=== PATIENT | male | born 1970 | race African-American/Black ===

== ENCOUNTER 2024-07-25 08:19 | Emergency (ER) | payer BC ==
[~2024-07-25] VITALS: Ht 175.3 cm; Wt 74.0 kg
[2024-07-25 08:30] VITALS: O2SAT 98
[2024-07-25 12:12] LABS: BASOPHILS % 0.8 % (0.0-2.0); DIFFERENTIAL COMMENT 0; EOSINOPHILS % 2.6 % (0.0-5.0); HEMATOCRIT. 42.1 % (42.0-52.0); LYMPHOCYTES % 55.6 % (20.0-50.0); MEAN CORPUSCULAR HEMOGLOBIN 34.1 pg (28.0-32.0); MEAN CORPUSCULAR HGB CONC 33.2 g/dL (31.0-37.0); MEAN CORPUSCULAR VOLUME 102.9 fL (80.0-94.0); MEAN PLATELET VOLUME 7.7 fl (7.4-10.4); MONOCYTES % 6.1 % (2.0-8.0); NEUTROPHILS % 34.9 % (40.0-76.0); PLATELET 191 x1000/uL (130-400); RED BLOOD CELL COUNT 4.09 mill/uL (4.7-6.1); RED CELL DISTRIBUTION WIDTH 12.9 % (11.6-14.6); WHITE BLOOD COUNT 4.5 x1000/uL (4.5-11.0)
[2024-07-25 12:32] LABS: CARBON DIOXIDE 24 mEq/L (21-32); CHLORIDE 109 mEq/L (98-107); POTASSIUM 4.3 mEq/L (3.5-5.1); SODIUM 141 mEq/L (136-145)
[2024-07-25 12:33] LABS: CALCIUM 9.7 mg/dL (8.7-10.4)
[2024-07-25 12:38] LABS: GLUCOSE 92 mg/dL (70-105); UREA NITROGEN BLOOD 16 mg/dL (9-23)
[2024-07-25 13:00] LABS: ETHANOL BLOOD < 10 mg/dL (<10); TROPONIN I HIGH SENSITIVITY < 4 ng/L (3.0-53)
[2024-07-25 14:56] VITALS: BP 116/72; PULSE 72; RESP 16; TEMP 36.6; O2SAT 98
== END 2024-07-25 14:58 | disposition home or self-care (01) ==
LOC: ER 08:43
DX: R10.31 Right lower quadrant pain (principal); R51.9 Headache, unspecified; Z98.890 Other specified postprocedural states
CPT/HCPCS: 36415; 71045; 74176; 80048; 80320; 84484; 85025; 93005; 99285; G0480

== ENCOUNTER 2024-10-20 22:57 | Emergency (ER) | payer BC ==
[~2024-10-20] VITALS: Ht 170.2 cm; Wt 78.0 kg
[2024-10-20 23:16] VITALS: O2SAT 99
[2024-10-21] MEDS: ACETAMINOPHEN 325MG TABLET PO ONE (00:04)
[2024-10-21] MEDS: KETOROLAC 15MG/ML VIAL IM ONE (00:07)
[2024-10-21] MEDS: HYDROCODONE/ACETAMINOPHEN 10/325MG TABLET PO ONE (00:08)
[2024-10-21 00:25] VITALS: BP 135/86; PULSE 60; RESP 18; TEMP 36.7; O2SAT 99
== END 2024-10-21 00:27 | disposition home or self-care (01) ==
LOC: ER 22:57
DX: K02.9 Dental caries, unspecified (principal)
CPT/HCPCS: 99283; 96372; J1885

== ENCOUNTER 2024-11-28 21:40 | Emergency (ER) | payer BC ==
[~2024-11-28] VITALS: Ht 172.7 cm; Wt 77.0 kg
[2024-11-28 21:43] VITALS: O2SAT 99
[2024-11-28 22:06] VITALS: BP 104/61; PULSE 78; RESP 16; TEMP 36.7; O2SAT 97
[2024-11-29] MEDS: KETOROLAC 15MG/ML VIAL IM ONE (00:23)
[2024-11-29] MEDS: LIDOCAINE 5% PATCH TOP SCH (00:24)
[2024-11-29] MEDS ORDERED: CYCL5TAB3 MT (00:41)
[2024-11-29] MEDS ORDERED: NAPR-1176 MT (00:41)
== END 2024-11-29 01:27 | disposition home or self-care (01) ==
LOC: ER 21:40
DX: M79.10 Myalgia, unspecified site (principal); M79.641 Pain in right hand; M79.642 Pain in left hand; Z98.890 Other specified postprocedural states; Z79.899 Other long term (current) drug therapy
CPT/HCPCS: 99283; 96372; J1885; Z7610